=== PATIENT | male | born 1985 | race Caucasian/White ===

== ENCOUNTER 2018-06-09 22:33 | Emergency (ER) | payer SELFPAY ==
--- NOTE | 2018-06-09 23:01 | ER Document Report ---
ED General - General Chief Complaint: Accidental Overdose Stated Complaint: POSSIBLE OVERDOSE Time Seen by Provider: 06/09/18 22:49 TRAVEL OUTSIDE OF THE [place] IN LAST 30 DAYS: No - HPI Patient complains to provider of: Using heroin Onset: This evening Notes: With hypokalemic periodic paralysis presents to the emergency department via EMS after overdosing on heroin. Per EMS report patient was found down by his w who gave him Narcan 4 mg intranasal 2 times. Patient was still down when EMS arrived and gave him an addition can 2 mg intranasal one time. He then woke up. patient endorses that he has only used heroin twice in his life, tonight being the second time. He does endorse using methamphetamines typically twice a day but not every day. Last meth use was this evening. He denies thoughts of suicide or harming others. Past Medical History - General Information source: Patient, Emergency Med Personnel - Social History Smoking Status: Current Every Day Smoker Frequency of alcohol use: None Drug Abuse: Heroin, Methamphetamine Lives with: Spouse/Significant other Family History: Reviewed & Not Pertinent Review of Systems - Review of Systems Constitutional: See HPI EENT: See HPI Cardiovascular: See HPI Respiratory: See HPI Gastrointestinal: See HPI Genitourinary: No symptoms reported Male Genitourinary: No symptoms reported Musculoskeletal: No symptoms reported Skin: No symptoms reported Hematologic/Lymphatic: No symptoms reported Neurological/Psychological: No symptoms reported Physical Exam - Vital signs Interpretation: Tachycardic - General General appearance: Alert In distress: None - HEENT Head: Normocephalic, Atraumatic Eyes: Normal Pupils: PERRL - Respiratory Respiratory status: No respiratory distress Chest status: Nontender Breath sounds: Normal Chest palpation: Normal - Cardiovascular Rhythm: Regular Heart sounds: Normal auscultation Murmur: No - Abdominal Inspection: Normal Distension: No distension Bowel sounds: Hypoactive Tenderness: Nontender Organomegaly: No organomegaly - Back Back: Normal, Nontender - Extremities General upper extremity: Normal inspection, Nontender, Normal color, Normal ROM , Normal temperature General lower extremity: Normal inspection, Nontender, Normal color, Normal ROM , Normal temperature, Normal weight bearing. No: Ashish's sign - Neurological Neuro grossly intact: Yes Cognition: Normal Orientation: AAOx4 [place] Coma Scale Eye Opening: Spontaneous [place] Coma Scale Verbal: Oriented [place] Coma Scale Motor: Obeys Commands [place] Coma Scale Total: 15 Speech: Normal Motor strength normal: LUE, RUE, LLE, RLE Sensory: Normal - Psychological Associated symptoms: Normal affect, Normal mood - Skin Skin Temperature: Warm Skin Moisture: Dry Skin Color: Normal Course - Re-evaluation Re-evalutation: 06/09/18 23:20 Patient awake and conversing upon interview. Did seem somewhat anxious and kept rubbing his face. We will observe him for the next 1-2 hours on cardiac monitoring. 06/09/18 23:40 Patient stated that he wants to leave AMA. I discussed with patient the risks involved with that. I told him that the Narcan will wear off sooner than the drugs that he took and there is a chance that he could stop breathing and after leaving here. Patient understood everything I said. Patient was standing and walking around with a steady gait in the room. Patient is competent to make his own decisions. I reiterated that he should stay for observation but the patient wants to go home. Discharge - Discharge Clinical Impression: Opiate overdose Qualifiers: Encounter type: initial encounter Injury intent: undetermined intent Qualified Code(s): T40.604A - Poisoning by unspecified narcotics, undetermined, initial encounter Condition: Stable Disposition: AGAINST MEDICAL ADVICE Instructions: Overdose / Ingestion ([facility]) Additional Instructions: You were seen in the emergency department this evening for overdosing on an opiate. You are leaving AGAINST MEDICAL ADVICE and it is important that you know that the Narcan will wear off sooner than the drugs and there is a chance that you could stop breathing and after leaving here. You are showing me that you are competent to make your own decisions. I strongly feel that you should should stay for observation but the risks were explained to you.
[2018-06-10 00:08] VITALS: BP 134/64
--- NOTE | 2018-06-10 07:32 | EKG REPORT ---
SEVERITY:- BORDERLINE ECG - SINUS TACHYCARDIA PROBABLE LEFT ATRIAL ABNORMALITY : Confirmed by: Oziel Alejandra MD 10-Jun-2018 07:31:55
== END 2018-06-10 00:08 | disposition left against medical advice (07) ==
LOC: ER 22:33
DX: T40.1X1A Poisoning by heroin, accidental (unintentional), initial encounter (principal); F17.200 Nicotine dependence, unspecified, uncomplicated; R00.0 Tachycardia, unspecified; X58.XXXA Exposure to other specified factors, initial encounter
CPT/HCPCS: 93005; 93010; 99284

== ENCOUNTER 2019-05-14 22:43 | Emergency (ER) | payer OTHER ==
[2019-05-14] MEDS ORDERED: LORAZEPAM INJ 2 MG/1 ML VIAL ONE (22:44)
[2019-05-14] MEDS ORDERED: LORAZEPAM INJ 2 MG/1 ML VIAL IV ONE (22:48)
[2019-05-14] MEDS ORDERED: NORMAL SALINE 1000 ML 1,000 ML IV ONE (22:48)
[2019-05-14 23:06] LABS: ABSOLUTE BASOPHILS # (AUTO) 0.1 10^3/uL (0.0-0.2); ABSOLUTE EOSINOPHILS # (AUTO) 0.3 10^3/uL (0.0-0.6); ABSOLUTE LYMPHOCYTES (AUTO) 3.2 10^3/uL (0.5-4.7); ABSOLUTE NEUT (AUTO) 8.9 10^3/uL (1.7-8.2); BASOPHILS % (AUTO) 0.7 % (0-2); EOSINOPHILS % (AUTO) 1.9 % (0-6); HEMATOCRIT 45.9 % (37.9-51.0); LYMPHOCYTES % (AUTO) 22.2 % (13-45); MEAN CORPUSCULAR HEMOGLOBIN 30.6 pg (27.0-33.4); MEAN CORPUSCULAR HGB CONC 34.9 g/dL (32.0-36.0); MEAN CORPUSCULAR VOLUME 88 fl (80-97); MONOCYTES % (AUTO) 13.6 % (3-13); PLATELET COUNT 188 10^3/uL (150-450); RED BLOOD COUNT 5.23 10^6/uL (4.35-5.55); RED CELL DISTRIBUTION WIDTH 13.5 % (11.5-14.0); SEGMENTED NEUTROPHILS % (AUTO) 61.6 % (42-78); TOTAL CELLS COUNTED % (AUTO) 100 %; WHITE BLOOD COUNT 14.5 10^3/uL (4.0-10.5)
[2019-05-14 23:06] LABS: VENOUS BLOOD BASE EXCESS 3.6 mmol/L; VENOUS BLOOD HCO3 27.6 mmol/L (20-32); VENOUS BLOOD PCO2 39.6 mmHg (35-63); VENOUS BLOOD PH 7.46 (7.30-7.42)
[2019-05-14 23:28] LABS: ALBUMIN 4.6 g/dL (3.5-5.0); ALKALINE PHOSPHATASE 90 U/L (38-126); ANION GAP 11 (5-19); ASPARTATE AMINO TRANSFERASE 43 U/L (17-59); BILIRUBIN,DIRECT 0.3 mg/dL (0.0-0.4); BILIRUBIN,TOTAL 1.1 mg/dL (0.2-1.3); BLOOD UREA NITROGEN 10 mg/dL (7-20); CALCIUM 9.3 mg/dL (8.4-10.2); CARBON DIOXIDE 27 mmol/L (22-30); CHLORIDE 100 mmol/L (98-107); CREATINE KINASE 261 U/L (55-170); GLUCOSE 97 mg/dL (75-110); POTASSIUM 3.8 mmol/L (3.6-5.0); TOTAL PROTEIN 8.2 g/dL (6.3-8.2)
[2019-05-14 23:34] LABS: ACETAMINOPHEN < 10 ug/mL (10-30); ALCOHOL < 10 mg/dL (NONE DETECTED); SALICYLATE < 1.0 mg/dL (2.0-20.0)
[2019-05-15] MEDS ORDERED: NORMAL SALINE 1000 ML 1,000 ML IV ONE (01:02)
[2019-05-15] MEDS ORDERED: CEFTRIAXONE 1 GM/D5W RTU 1 GM/50 ML RTUPB IV ONE (02:28)
--- NOTE | 2019-05-15 02:33 | ER Document Report ---
Entered by AFSHIN SANCHES SCRIBE 05/14/19 1747 Acting as scribe for:ALEJO STEPHENS DO ED Substance Abuse / Acc. OD - General Chief Complaint: Possible Overdose Stated Complaint: POSSIBLE OVERDOSE Time Seen by Provider: 05/14/19 22:47 Mode of Arrival: Wheelchair Information source: Patient, Relative Notes: 33-year-old male who presents to the emergency department today with complaints of a possible overdose. Patient states he took Benadryl, Adderall, and Suboxone but the amount that he took are unknown. Patient is rather difficult to obtain any history from because of his altered mental status. The patient does deny suicidal ideation stating "I love me". Patient has only been seen in this facility once in the past which was for a heroin overdose. TRAVEL OUTSIDE OF THE [place] IN LAST 30 DAYS: No - Related Data Allergies/Adverse Reactions: No Known Allergies Allergy (Unverified 05/15/19 00:42) Past Medical History - General Information source: Patient - Social History Smoking Status: Current Every Day Smoker Cigarette use (# per day): Yes Drug Abuse: Heroin, Methamphetamine, Prescription drugs Lives with: Family Family History: Reviewed & Not Pertinent Past Surgical History: Reports: Hx Appendectomy, Hx Orthopedic Surgery Review of Systems - Review of Systems -: Yes ROS unobtainable due to patient's medical condition Physical Exam - Vital signs Vitals: Resp Pulse Ox 21 H 96 05/14/19 22:52 05/14/19 22:52 Interpretation: Normal - General General appearance: Alert In distress: Mild - HEENT Head: Normocephalic, Atraumatic Eyes: Normal Pupils: PERRL - Respiratory Respiratory status: No respiratory distress Chest status: Nontender Breath sounds: Normal Chest palpation: Normal - Cardiovascular Rhythm: Regular Heart sounds: Normal auscultation Murmur: No - Abdominal Inspection: Normal Distension: No distension Bowel sounds: Normal Tenderness: Nontender Organomegaly: No organomegaly - Back Back: Normal, Nontender - Extremities General upper extremity: Normal inspection, Nontender, Normal color, Normal ROM, Normal temperature General lower extremity: Normal inspection, Nontender, Normal color, Normal ROM, Normal temperature, Normal weight bearing. No: Ashish's sign - Neurological Neuro grossly intact: Yes Cognition: Inattentive Orientation: AAOx4 [place] Coma Scale Eye Opening: Spontaneous [place] Coma Scale Verbal: Oriented [place] Coma Scale Motor: Obeys Commands [place] Coma Scale Total: 15 Motor strength normal: LUE, RUE, LLE, RLE Sensory: Normal Notes: Tremulousness, facial twitching. No seizure activity - Psychological Associated symptoms: Anxious, Psychomotor agitation, Restlessness - Skin Skin Temperature: Warm Skin Moisture: Dry Skin Color: Normal Course - Re-evaluation Re-evalutation: 05/15/19 02:27 Patient apparently overdosed this evening on Benadryl, methamphetamines, and Suboxone. He came in agitated, with twitching and pressured speech. Patient is adamant that he is not suicidal. States that this is a recreational overdose. EKG within normal limits. No widened QRS. Blood work benign. No evidence for dangerous overdose. Patient given Ativan as he kept trying to get up. He has a tattoo that also appears that may be infected. No evidence for fluctuance or abscess. Will be started on antibiotics. 05/15/19 02:[address] Cazares pending metabolization and reevaluation. - Vital Signs Vital signs: Temp Pulse Resp BP Pulse Ox 98.5 F 26 H 120/68 97 05/15/19 00:39 05/15/19 00:16 05/15/19 00:16 05/15/19 00:16 - Laboratory Result Diagrams: 05/14/19 22:51 05/14/19 22:51 Laboratory results interpreted by me: 05/14/19 05/14/19 05/14/19 22:51 22:51 22:53 WBC 14.5 H [place] % (Auto) 13.6 H Absolute Neuts (auto) 8.9 H Absolute Monos (auto) 2.0 H VBG pH 7.46 H Creatine Kinase 261 H Salicylates < 1.0 L Acetaminophen < 10 L - EKG Interpretation by Fl EKG shows normal: Sinus rhythm Rate: Tachycardia When compared to previous EKG there are: No significant change - QRS wnl Discharge - Discharge Clinical Impression: Overdose Qualifiers: Encounter type: initial encounter Injury intent: accidental or unintentional Qualified Code(s): T50.901A - Poisoning by unspecified drugs, medicaments and biological substances, accidental (unintentional), initial encounter Cellulitis Qualifiers: Site of cellulitis: extremity Site of cellulitis of extremity: upper extremity Laterality: left Qualified Code(s): L03.114 - Cellulitis of left upper limb Condition: Stable Disposition: OTHER Instructions: Instructions for Home Care Following a Drug Overdose ([facility]), Cellulitis ([facility]) Prescriptions: Clindamycin HCl 300 mg PO TID #30 capsule I personally performed the services described in the documentation, reviewed and edited the documentation which was dictated to the scribe in my presence, and it accurately records my words and actions.
--- NOTE | 2019-05-15 05:59 | ER Document Report ---
Doctor's Note Notes: 05/15/19 05:58 Care of this patient was turned over to me at approximately 4:00 AM on my shift. Patient initially presented as an overdose, admitting to use of methamphetamine, Benadryl. The patient states this was recreational. He was given Ativan here secondary to agitation. I went in to reevaluate the patient. His vital signs of remained stable. His heart rate is in the 80s, blood pressure 134/77. His respiratory rate is 22 and unlabored, and he is 97% on room air. Patient had been quite somnolent after the Ativan. He arouses to verbal stimuli, but still cannot appropriately answer any questions. He did have a girlfriend here who states that, when he is able, she is happy to take him home. Patient will be monitored here in the emergency department until he is awake and alert, able to further reiterate that he was not in fact suicidal, at which point he will be discharged.
--- NOTE | 2019-05-15 08:47 | EKG REPORT ---
SEVERITY:- BORDERLINE ECG - SINUS RHYTHM PROLONGED QTC 466 MS . : Confirmed by: Oziel Alejandra MD 15-May-2019 08:47:22
[2019-05-15 09:56] VITALS: BP 119/75
[2019-05-15 10:16] LABS: APPEARANCE,URINE CLEAR; BILIRUBIN,URINE NEGATIVE (NEGATIVE); COLOR,URINE YELLOW; GLUCOSE, URINE NEGATIVE (NEGATIVE); KETONES,URINE NEGATIVE (NEGATIVE); LEUKOCYTE ESTERASE,URINE NEGATIVE (NEGATIVE); NITRITE,URINE NEGATIVE (NEGATIVE); PROTEIN,URINE NEGATIVE (NEGATIVE); URINE SPECIFIC GRAVITY 1.012; UROBILINOGEN,URINE NEGATIVE mg/dL (<2.0)
[2019-05-15 10:35] LABS: URINE BARBITURATES SCREEN NEGATIVE; URINE BENZODIAZEPINES SCREEN NEGATIVE; URINE COCAINE SCREEN NEGATIVE; URINE MARIJUANA (THC) SCREEN NEGATIVE; URINE METHADONE SCREEN NEGATIVE; URINE PHENCYCLIDINE SCREEN NEGATIVE
== END 2019-05-15 09:55 | disposition other institution (70) ==
LOC: ER 22:43
DX: T50.901A Poisoning by unspecified drugs, medicaments and biological substances, accidental (unintentional), initial encounter (principal); L03.114 Cellulitis of left upper limb; F11.10 Opioid abuse, uncomplicated; F14.10 Cocaine abuse, uncomplicated; R45.1 Restlessness and agitation; F17.210 Nicotine dependence, cigarettes, uncomplicated; R25.3 Fasciculation; R00.0 Tachycardia, unspecified
CPT/HCPCS: 93005; 36415; 80307 ×4; 82550; 85025; 80053; 81001; 82803; 93010; J2060; J7030 ×2; J0696; 96361; 96365; 96375; 99284

== ENCOUNTER 2020-06-07 21:19 | Emergency (ER) | payer OTHER ==
[2020-06-07 21:51] VITALS: BP 137/83
== END 2020-06-07 23:30 | disposition left against medical advice (07) ==
LOC: ER 21:19
DX: Z53.21 Procedure and treatment not carried out due to patient leaving prior to being seen by health care provider (principal)